=== PATIENT | female | born 1980 | race African-American/Black ===

== ENCOUNTER 2018-03-07 20:39 | Emergency (ER) | payer OTHER ==
[~2018-03-07] VITALS: Ht 172.7 cm; Wt 116.8 kg
[~2018-03-07 20:39] MED LIST: INSU100C3 SQ; LISI20TA PO; METF10004 PO
[2018-03-07] MEDS ORDERED: METF500T6 PO (21:03)
[2018-03-07 21:07] LABS: GLUCOSE,POINT OF CARE 190 MG/DL (70-110)
[2018-03-07] MEDS ORDERED: TOBRAMYCIN/DEXAMETHASONE 5 ML OPHTHALMIC SUSPENSION OU ONE (23:00)
[2018-03-07 23:12] VITALS: BP 140/90
== END 2018-03-07 23:14 | disposition home or self-care (01) ==
LOC: EMS 20:39
DX: H10.9 Unspecified conjunctivitis (principal); E11.9 Type 2 diabetes mellitus without complications; I10 Essential (primary) hypertension
CPT/HCPCS: 82962; 99282; 99283